=== PATIENT | male | born 1960 | race Caucasian/White ===

== ENCOUNTER 2016-11-21 06:16 | Emergency (ER) | payer BC ==
[2016-11-21] MEDS ORDERED: SODIUM CHLORIDE 0.9% 1,000 ML IV STA (07:23)
[2016-11-21] MEDS ORDERED: IPRATROPIUM-ALBUTEROL 3 ML NEB INHALATION STA (07:24)
[2016-11-21] MEDS ORDERED: SODIUM CHLORIDE 0.9% 500 ML IV STA (07:27)
--- NOTE | 2016-11-21 07:27 | ED ---
Anxiety HPI - General Chief Complaint: Anxiety Stated Complaint: Dizzy, anxiety Time Seen by Provider: 11/21/16 07:00 Source: patient, family, RN notes reviewed Mode of arrival: ambulatory - History of Present Illness Initial Comments: This is a 56-year-old male with a history of hypertension who states he's had over the past 2 weeks episodes of dizziness anxiety sweats not sleeping. He also has a cough with yellow phlegm. He does admit he smokes 1-2 packs of cigarettes per day he also does drink about 6 beers a day he states. He denies any change in his diet he is currently not on medications for blood pressure but he does relate the symptoms to his blood pressure being elevated. 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 He denies any fevers or chills but again he does complain of some intermittent sweats. No chest pain he does get some exertional dyspnea. No abdominal pain no nausea vomiting diarrhea or other symptoms reported he denies any earache sore throat or rhinorrhea. MD Complaint: anxiety, other - Related Data Home Medications: Home Medications Medication Instructions Recorded Confirmed Aspirin 162 mg PO DAILY 11/21/16 11/21/16 Previous Rx's Medication Instructions Recorded Enalapril [Vasotec] 2.5 mg PO DAILY #30 tablet 11/21/16 Allergies/Adverse Reactions: Allergies Allergy/AdvReac Type Severity Reaction Status Date / Time No Known Allergies Allergy Verified 11/21/16 08:29 Review of Systems ROS Statement: Those systems with pertinent positive or pertinent negative responses have been documented in the HPI. ROS Other: All systems not noted in ROS Statement are negative. Past Medical History Past Medical History: GERD/Reflux, Hypertension History of Any Multi-Drug Resistant Organisms: None Reported Additional Past Surgical History / Comment(s): testicles decended Past Psychological History: No Psychological Hx Reported Smoking Status: Current every day smoker Past Alcohol Use History: Daily, Heavy Past Drug Use History: None Reported General Exam - General Exam Comments Initial Comments: This is a well-developed well-nourished awake alert oriented 3 male Limitations: no limitations General appearance: alert, in no apparent distress Head exam: Present: atraumatic, normocephalic, normal inspection Eye exam: Present: normal appearance, PERRL, EOMI. Absent: scleral icterus, conjunctival injection, periorbital swelling ENT exam: Present: normal exam, mucous membranes moist Neck exam: Present: normal inspection. Absent: tenderness, meningismus, lymphadenopathy Respiratory exam: Present: wheezes, decreased breath sounds. Absent: respiratory distress, rales, rhonchi, stridor Cardiovascular Exam: Present: regular rate, normal rhythm, normal heart sounds. Absent: systolic murmur, diastolic murmur, rubs, gallop, clicks GI/Abdominal exam: Present: soft, normal bowel sounds. Absent: distended, tenderness, guarding, rebound, rigid Extremities exam: Present: normal inspection, full ROM, normal capillary refill. Absent: tenderness, pedal edema, joint swelling, calf tenderness Back exam: Present: normal inspection Neurological exam: Present: alert, oriented X3, CN II-XII intact Psychiatric exam: Present: normal affect, normal mood Skin exam: Present: warm, dry, intact, normal color. Absent: rash Course Vital Signs 11/21/16 11/21/16 11/21/16 06:21 06:55 07:20 Temperature 96.7 F L Pulse Rate 86 81 84 Respiratory 18 18 17 Rate Blood Pressure 163/101 157/101 158/96 O2 Sat by Pulse 96 95 Oximetry 11/21/16 11/21/16 11/21/16 07:53 08:04 08:18 Temperature Pulse Rate 78 90 84 Respiratory 18 Rate Blood Pressure 159/100 O2 Sat by Pulse 99 Oximetry 11/21/16 08:34 Temperature Pulse Rate Respiratory 17 Rate Blood Pressure 152/89 O2 Sat by Pulse 89 L Oximetry Medical Decision Making - Medical Decision Making Patient is feeling improved I did discuss the findings with him I did reevaluate the patient is lung sounds are clear. We did a long discussion lasted 3.1 minutes of the need for smoking cessation and the risk factors. Patient will be started on a low-dose blood pressure medication he does not recall when he was on before he will seek out a primary care physician. We also did discuss cessation of alcohol use. Also the need for adequate hydration - Lab Data Result diagrams: 11/21/16 07:30 11/21/16 07:30 Lab Results 11/21/16 11/21/16 11/21/16 Range/Units 07:30 07:30 07:30 WBC 9.5 (3.8-10.6) k/uL RBC 5.45 (4.30-5.90) m/uL Hgb 16.7 (13.0-17.5) gm/dL Hct 49.7 (39.0-53.0) % MCV 91.2 (80.0-100.0) fL MCH 30.6 (25.0-35.0) pg MCHC 33.6 (31.0-37.0) g/dL RDW 13.7 (11.5-15.5) % Plt Count 262 (150-450) k/uL Neutrophils % 73 % Lymphocytes % 17 % Monocytes % 5 % Eosinophils % 2 % Basophils % 1 % Neutrophils # 6.9 (1.3-7.7) k/uL Lymphocytes # 1.6 (1.0-4.8) k/uL Monocytes # 0.4 (0-1.0) k/uL Eosinophils # 0.2 (0-0.7) k/uL Basophils # 0.1 (0-0.2) k/uL Sodium 143 (137-145) mmol/L Potassium 4.5 (3.5-5.1) mmol/L Chloride 108 H (98-107) mmol/L Carbon Dioxide 26 (22-30) mmol/L Anion Gap 9 mmol/L BUN 11 (9-20) mg/dL Creatinine 0.77 (0.66-1.25) mg/dL Est GFR (MDRD) Af Amer >60 (>60 ml/min/1.73 sqM) Est GFR (MDRD) Non-Af >60 (>60 ml/min/1.73 sqM) Glucose 112 H (74-99) mg/dL Calcium 9.9 (8.4-10.2) mg/dL Magnesium 2.1 (1.6-2.3) mg/dL Total Bilirubin 0.8 (0.2-1.3) mg/dL AST 26 (17-59) U/L ALT 40 (21-72) U/L Alkaline Phosphatase 100 (38-126) U/L Total Creatine Kinase 132 (55-170) U/L CK-MB (CK-2) 0.6 (0.0-2.4) ng/mL CK-MB (CK-2) Rel Index 0.5 Troponin I <0.012 (0.000-0.034) ng/mL Total Protein 7.4 (6.3-8.2) g/dL Albumin 4.3 (3.5-5.0) g/dL TSH 0.909 (0.465-4.680) mIU/L Serum Alcohol <10 mg/dL - Radiology Data Radiology results: report reviewed (Review the x-ray shows no evidence of acute findings.), image reviewed Disposition Clinical Impression: Hypertension, Dehydration, Smoking Disposition: HOME SELF-CARE Condition: Good Instructions: Generalized Anxiety Disorder (ED), Hypertension (ED), Dehydration (ED), How to Stop Smoking (ED) Prescriptions: Enalapril [Vasotec] 2.5 mg PO DAILY #30 tablet Referrals: None,Stated [Primary Care Provider] - 1-2 days
[2016-11-21 07:47] LABS: Basophils # (A) 0.1 k/uL (0-0.2); Basophils % (A) 1 %; CH 30.8; Eosinophils # (A) 0.2 k/uL (0-0.7); Eosinophils % (A) 2 %; HCT 49.7 % (39.0-53.0); HDW 2.29; HGB 16.7 gm/dL (13.0-17.5); Luc % (Auto) 2; Lymphocytes # (A) 1.6 k/uL (1.0-4.8); Lymphocytes % (A) 17 %; MCH 30.6 pg (25.0-35.0); MCHC 33.6 g/dL (31.0-37.0); MCV 91.2 fL (80.0-100.0); Mean Platelet Volume 6.9; Monocytes # (A) 0.4 k/uL (0-1.0); Monocytes % (A) 5 %; Neutrophils # (A) 6.9 k/uL (1.3-7.7); Neutrophils % (A) 73 %; RBC 5.45 m/uL (4.30-5.90); RDW 13.7 % (11.5-15.5); WBC 9.5 k/uL (3.8-10.6); WBC (Perox) 8.89
[2016-11-21 07:55] LABS: ALT 40 U/L (21-72); AST 26 U/L (17-59); Alcohol <10 mg/dL; Alkaline Phosphatase 100 U/L (38-126); Anion Gap 9 mmol/L; Blood Urea Nitrogen 11 mg/dL (9-20); Calcium 9.9 mg/dL (8.4-10.2); Carbon Dioxide 26 mmol/L (22-30); Chloride 108 mmol/L (98-107); Glucose 112 mg/dL (74-99); Magnesium 2.1 mg/dL (1.6-2.3); Non-African American GFR(MDRD) >60 (>60 ml/min/1.73 sqM); Potassium 4.5 mmol/L (3.5-5.1); Sodium 143 mmol/L (137-145); Total Bilirubin 0.8 mg/dL (0.2-1.3); Total Protein 7.4 g/dL (6.3-8.2)
[2016-11-21 08:07] LABS: Creatine Kinase 132 U/L (55-170)
[2016-11-21 08:19] VITALS: PULSE 84
[2016-11-21 08:20] LABS: Creatine Kinase MB 0.6 ng/mL (0.0-2.4); Troponin I <0.012 ng/mL (0.000-0.034)
--- NOTE | 2016-11-21 08:24 | XR ---
EXAMINATION TYPE: XR chest 2V DATE OF EXAM: 11/21/2016 COMPARISON: NONE HISTORY: Cough and congestion for one week. TECHNIQUE: Frontal and lateral views of the chest are obtained. FINDINGS: There is chronic parenchymal change without suspicious focal air space opacity, pleural ef fusion, or pneumothorax seen. The cardiac silhouette size is within normal limits. The osseous str uctures are intact. IMPRESSION: Chronic changes without acute cardiopulmonary process
[2016-11-21 08:36] VITALS: RESP 17
[2016-11-21 09:09] VITALS: BP 150/85; TEMP 98.7
== END 2016-11-21 09:10 | disposition home or self-care (01) ==
LOC: EC 06:16
DX: E86.0 Dehydration (principal); I10 Essential (primary) hypertension; F41.9 Anxiety disorder, unspecified; R42 Dizziness and giddiness; R05 Cough; F17.210 Nicotine dependence, cigarettes, uncomplicated; Z79.82 Long term (current) use of aspirin
CPT/HCPCS: 36415; 71020; 80053; 80320; 82550; 82553; 83735; 84443; 84484; 85025; 93005; 94640; 96360; 99284

== ENCOUNTER 2017-11-14 08:46 | Day surgery (SDC) | payer BC ==
[2017-11-13 08:42] VITALS: BMI 29.3
[~2017-11-14 08:46] MED LIST: LACTATED RINGERS 1,000 ML IV SCH; LIDOCAINE 1% 20 ML VIAL (10MG/ML) FOR IV START INTRADERMA PRN; MIDAZOLAM 2 MG/2 ML VIAL IV PRN
[2017-11-14 09:21] VITALS: RESP 18; TEMP 97.4
[2017-11-14] MEDS ORDERED: MIDAZOLAM 2 MG/2 ML VIAL ONE (10:16)
[2017-11-14] MEDS ORDERED: fentaNYL (PF) 50 MCG/ML 2 ML AMP ONE (10:16)
[2017-11-14] MEDS ORDERED: PROPOFOL 10 MG/ML 20 ML VIAL IV ONE (10:16)
[2017-11-14] MEDS ORDERED: LIDOCAINE 1% INJ 10MG/ML (20 ML MDV) ONE (10:16)
--- NOTE | 2017-11-14 10:58 | P.PCN ---
Date of Procedure: 11/14/17 Procedure(s) Performed: Procedure: Colonoscopy and biopsy. Preoperative diagnosis: Screening for neoplasia. Postoperative diagnosis: Diminutive sigmoid polyp biopsied but no large polyps or cancer. Preparation: HalfLytely prep. Sedation: Was provided by anesthesia. Brief clinical history: The patient is a 57-year-old male who is scheduled for this evaluation for screening for neoplasia age being his risk factor. He has no abdominal complaints, bleeding or anemia. No family history of colon cancer this would be his first colonoscopy. Procedure: With the patient on his left lateral decubitus position and after informed consent and adequate sedation, the perianal area was inspected and it did not show any fissures or fistulas. There were no masses felt on digital rectal examination. The Olympus CFQ 160L video colonoscope was then inserted in the rectum in the usual fashion and advanced to the cecum. There was a diminutive polyp in the sigmoid which was biopsied but there were no large polyps or cancer. There were no obvious diverticular disease or other pathology. I retroflexed the endoscope in the rectum before the endoscope was withdrawn. The patient tolerated the procedure well. Plan: The patient was reassured. Will await biopsy results. He will follow up with you as planned and I anticipate repeating this exam in 5-10 years.
[2017-11-14 11:14] VITALS: PULSE 69
[2017-11-14 11:25] VITALS: BP 118/70
== END 2017-11-14 11:42 | disposition home or self-care (01) ==
LOC: ORWHC2ENDO 08:46
DX: Z12.11 Encounter for screening for malignant neoplasm of colon (principal); K63.5 Polyp of colon; I10 Essential (primary) hypertension; E78.5 Hyperlipidemia, unspecified; Z72.0 Tobacco use; K21.9 Gastro-esophageal reflux disease without esophagitis; Z79.899 Other long term (current) drug therapy
CPT/HCPCS: 88305; 45380; J2250; J2001; J3010; J2704

== ENCOUNTER 2018-07-27 22:11 | Emergency (ER) | payer BC ==
[2018-07-27] MEDS ORDERED: ONDANSETRON 4 MG/2 ML VIAL IVP STA (22:44)
[2018-07-27] MEDS ORDERED: HYDROmorphone 0.5 MG/0.5 ML SYRINGE IVP STA (22:44)
[2018-07-27] MEDS ORDERED: KETOROLAC 30 MG/ML 1 ML VIAL IVP STA (22:44)
[2018-07-27] MEDS ORDERED: SODIUM CHLORIDE 0.9% 1,000 ML IV STA (22:44)
--- NOTE | 2018-07-27 22:51 | ED ---
Abdominal Pain HPI - General Source: patient Mode of arrival: ambulatory Limitations: no limitations <Carlene Madrigal - Last Filed: 07/28/18 00:25> <Erin Chatterjee - Last Filed: 07/28/18 02:43> - General Chief Complaint: Abdominal Pain Stated Complaint: poss kidney stone Time Seen by Provider: 07/27/18 22:32 - History of Present Illness Initial Comments: 58-year-old male patient presents to the emergency department today for evaluation of right low back pain that radiates into the right lower quadrant abdomen. Patient denies any radiation of the pain to his groin or testicles. Denies any difficulty with urination. States the pain started around 11:00 this morning and has persisted since. He denies any radiation of the pain down his leg. Denies any loss of bowel or bladder control. There is a numbness or tingling to the lower extremities. Patient denies any history of similar symptoms. Denies any history of abdominal surgeries. States his bowel movements have been normal. Denies any hematochezia or melena. Denies any nausea or vomiting with this. Denies fevers or chills. Patient denies any recent rash, shortness breath, chest pain, dizziness, weakness, hematuria, dysuria, urinary urgency, urinary frequency, headache, visual changes, or any other complaints. (Carlene Madrigal) - Related Data Home Medications Medication Instructions Recorded Confirmed Atorvastatin [Lipitor] 1 tab PO DAILY 11/14/17 11/14/17 Famotidine 1 tab PO DAILY 11/14/17 11/14/17 Gemfibrozil [Lopid] 1 tab PO BID 11/14/17 11/14/17 [place]-3 Fatty Acids/Fish Oil [Fish 1 tab PO DAILY 11/14/17 11/14/17 Oil 1,000 mg Softgel] amLODIPine BESYLATE/BENAZEPRIL 1 tab PO DAILY 11/14/17 11/14/17 [Lotrel 10-40 mg Capsule] Previous Rx's Medication Instructions Recorded Cyclobenzaprine [Flexeril] 10 mg PO TID #15 tab 07/28/18 Ibuprofen [Motrin] 600 mg PO Q8HR PRN #30 tab 07/28/18 Allergies Allergy/AdvReac Type Severity Reaction Status Date / Time No Known Allergies Allergy Verified 07/27/18 22:22 Review of Systems ROS Other: All systems not noted in ROS Statement are negative. <Carlene Madrigal - Last Filed: 07/28/18 00:25> ROS Other: All systems not noted in ROS Statement are negative. <Erin Chatterjee Zoraida - Last Filed: 07/28/18 02:43> ROS Statement: Those systems with pertinent positive or pertinent negative responses have been documented in the HPI. Past Medical History Past Medical History: GERD/Reflux, Hyperlipidemia, Hypertension History of Any Multi-Drug Resistant Organisms: None Reported Additional Past Surgical History / Comment(s): surgery for undescended testicle as a child Past Anesthesia/Blood Transfusion Reactions: No Reported Reaction Past Psychological History: No Psychological Hx Reported Smoking Status: Former smoker Past Alcohol Use History: Occasional Past Drug Use History: None Reported - Past Family History Mother Family Medical History: No Reported History <Carlene Madrigal Gabriela - Last Filed: 07/28/18 00:25> General Exam Limitations: no limitations General appearance: alert, in no apparent distress, other (Physical well- developed, well-nourished adult male patient in no acute distress. Vital signs upon presentation are temperature 98.6F, pulse 90, respirations 18, blood pressure 114/77, pulse ox 95% on room air.) Eye exam: Present: normal appearance, PERRL, EOMI. Absent: scleral icterus, conjunctival injection, periorbital swelling Respiratory exam: Present: normal lung sounds bilaterally. Absent: respiratory distress, wheezes, rales, rhonchi, stridor Cardiovascular Exam: Present: regular rate, normal rhythm, normal heart sounds. Absent: systolic murmur, diastolic murmur, rubs, gallop, clicks GI/Abdominal exam: Present: soft, tenderness (Right lower quadrant tenderness), normal bowel sounds. Absent: distended, guarding, rebound, rigid Back exam: Present: normal inspection. Absent: CVA tenderness (R), CVA tenderness (L) Neurological exam: Present: alert, oriented X3, CN II-XII intact Psychiatric exam: Present: normal affect, normal mood Skin exam: Present: warm, dry, intact, normal color. Absent: rash <Carlene Madrigal - Last Filed: 07/28/18 00:25> Vital Signs 0207/27/18 07/28/18 22:19 23:22 00:00 Temperature 98.6 F Pulse Rate 90 79 77 Respiratory 18 18 20 Rate Blood Pressure 114/77 132/73 119/69 O2 Sat by Pulse 95 98 95 Oximetry 07/28/18 00:39 Temperature 97 F L Pulse Rate 78 Respiratory 18 Rate Blood Pressure 119/79 O2 Sat by Pulse 97 Oximetry Medical Decision Making - Lab Data Result diagrams: 07/27/18 22:33 07/27/18 22:33 - Radiology Data Radiology results: image reviewed <Carlene Madrigal - Last Filed: 07/28/18 00:25> - Lab Data Result diagrams: 07/27/18 22:33 07/27/18 22:33 <Erin Chatterjee - Last Filed: 07/28/18 02:43> - Medical Decision Making 58-year-old male patient presents to the emergency department today for evaluation of right low back pain that radiates into the right lower abdomen. Physical examination is relatively unremarkable. He is neurovascularly intact and neurologically intact. Labs reviewed and are relatively unremarkable. Patient was unable to provide urine sample here in the department. We did perform CT abdomen and pelvis without contrast, this did show no acute abnormalities however there was an incidental finding of a 1.2 cm left renal lesion. I did discuss this finding with the patient and instructed him to follow-up with his primary care physician for further evaluation. Given lack of other findings patient's pain is felt to be related to mechanical back pain. He'll be given anti-inflammatory, muscle relaxer, and a starter pack for Tylenol codeine. He is instructed to follow-up with his primary care physician for recheck in 1-2 days. Return parameters were discussed in detail. He verbalizes understanding and agrees with this plan. (Carlene Madrigal) I was available for consultation in the emergency department. The history and physical exam were done by the midlevel provider. I was consulted for this patient's care. I reviewed the case with the midlevel provider and based on their presentation of the patient, I agree with the assessment, medical decision making and plan of care as documented. (Erin Chatterjee) - Lab Data Lab Results 07/27/18 07/27/18 Range/Units 22:33 22:33 WBC 9.4 (3.8-10.6) k/uL RBC 5.04 (4.30-5.90) m/uL Hgb 14.7 (13.0-17.5) gm/dL Hct 43.1 (39.0-53.0) % MCV 85.6 (80.0-100.0) fL MCH 29.1 (25.0-35.0) pg MCHC 34.0 (31.0-37.0) g/dL RDW 12.9 (11.5-15.5) % Plt Count 396 (150-450) k/uL Neutrophils % 59 % Lymphocytes % 26 % Monocytes % 6 % Eosinophils % 5 % Basophils % 1 % Neutrophils # 5.5 (1.3-7.7) k/uL Lymphocytes # 2.5 (1.0-4.8) k/uL Monocytes # 0.6 (0-1.0) k/uL Eosinophils # 0.5 (0-0.7) k/uL Basophils # 0.1 (0-0.2) k/uL Sodium 138 (137-145) mmol/L Potassium 4.9 (3.5-5.1) mmol/L Chloride 101 (98-107) mmol/L Carbon Dioxide 26 (22-30) mmol/L Anion Gap 11 mmol/L BUN 14 (9-20) mg/dL Creatinine 1.02 (0.66-1.25) mg/dL Est GFR (CKD-EPI)AfAm >90 (>60 ml/min/1.73 sqM) Est GFR (CKD-EPI)NonAf 81 (>60 ml/min/1.73 sqM) Glucose 111 H (74-99) mg/dL Calcium 9.8 (8.4-10.2) mg/dL Total Bilirubin 0.9 (0.2-1.3) mg/dL AST 35 (17-59) U/L ALT 50 (21-72) U/L Alkaline Phosphatase 153 H (38-126) U/L Total Protein 8.3 H (6.3-8.2) g/dL Albumin 4.7 (3.5-5.0) g/dL Amylase 51 (30-110) U/L Lipase 90 (23-300) U/L - Radiology Data CT abdomen and pelvis without contrast was obtained. Report was reviewed in its entirety. Impression by Dr. Villela is 1.2 cm indeterminate left renal lesion. Follow-up advised. (Carlene Madrigal) Disposition Is patient prescribed a controlled substance at d/c from ED?: No <Carlene Madrigal - Last Filed: 07/28/18 00:25> <Erin Chatterjee - Last Filed: 07/28/18 02:43> Clinical Impression: Acute low back pain, Kidney lesion, [place], left Disposition: HOME SELF-CARE Condition: Good Instructions (If sedation given, give patient instructions): Acute Low Back Pain (ED) Additional Instructions: Take medications as directed. Follow up with your primary care physician for recheck in 1-2 days. Inform them of left kidney lesion and need for further evaluation. Return to the emergency department for any new, worsening, or concerning symptoms. Prescriptions: Cyclobenzaprine [Flexeril] 10 mg PO TID #15 tab Ibuprofen [Motrin] 600 mg PO Q8HR PRN #30 tab PRN Reason: Pain Referrals: Ronal Yarbrough MD [Primary Care Provider] - 1-2 days
[2018-07-27 23:01] LABS: Basophils # (A) 0.1 k/uL (0-0.2); Basophils % (A) 1 %; Eosinophils # (A) 0.5 k/uL (0-0.7); Eosinophils % (A) 5 %; HCT 43.1 % (39.0-53.0); HGB 14.7 gm/dL (13.0-17.5); Lymphocytes # (A) 2.5 k/uL (1.0-4.8); Lymphocytes % (A) 26 %; MCH 29.1 pg (25.0-35.0); MCV 85.6 fL (80.0-100.0); Mean Platelet Volume 6.6; Monocytes # (A) 0.6 k/uL (0-1.0); Monocytes % (A) 6 %; Neutrophils # (A) 5.5 k/uL (1.3-7.7); Neutrophils % (A) 59 %; Platelet Count 396 k/uL (150-450); RBC 5.04 m/uL (4.30-5.90); RDW 12.9 % (11.5-15.5); WBC 9.4 k/uL (3.8-10.6)
[2018-07-27 23:09] LABS: ALT 50 U/L (21-72); AST 35 U/L (17-59); Albumin 4.7 g/dL (3.5-5.0); Alkaline Phosphatase 153 U/L (38-126); Amylase 51 U/L (30-110); Anion Gap 11 mmol/L; Blood Urea Nitrogen 14 mg/dL (9-20); Calcium 9.8 mg/dL (8.4-10.2); Carbon Dioxide 26 mmol/L (22-30); Chloride 101 mmol/L (98-107); Glucose 111 mg/dL (74-99); Lipase 90 U/L (23-300); Potassium 4.9 mmol/L (3.5-5.1); Sodium 138 mmol/L (137-145); Total Bilirubin 0.9 mg/dL (0.2-1.3); Total Protein 8.3 g/dL (6.3-8.2)
--- NOTE | 2018-07-28 00:14 | CT ---
EXAM: CT Abdomen and Pelvis Without Intravenous Contrast CLINICAL HISTORY: ITS.REASON CT Reason: Pain TECHNIQUE: Axial computed tomography images of the abdomen and pelvis without intravenous contrast. CTDI is 14 mGy and DLP is 886 mGy-cm. This CT exam was performed using one or more of the following dose reduction techniques: automated exposure control, adjustment of the mA and/or kV according to patient size, and/or use of iterative reconstruction technique. COMPARISON: No relevant prior studies available. FINDINGS: Lung bases: Unremarkable. No mass. No consolidation. ABDOMEN: Liver: Hepatomegaly Gallbladder and bile ducts: No abnormal ductal dilation or stones. Pancreas: Unremarkable. No ductal dilation. Spleen: Mild splenomegaly Adrenals: Unremarkable. No mass. Kidneys and ureters: 1.2 cm indeterminate left renal lesion. Stomach and bowel: No obstruction. No mucosal thickening. PELVIS: Appendix: No findings to suggest acute appendicitis. Bladder: Unremarkable. No stones. Reproductive: Unremarkable as visualized. ABDOMEN and PELVIS: Intraperitoneal space: Unremarkable. No free air. No significant fluid collection. Bones/joints: No acute fracture. No dislocation. Soft tissues: Unremarkable. Vasculature: No abdominal aortic aneurysm. Lymph nodes: Unremarkable. No enlarged lymph nodes. IMPRESSION: 1.2 cm indeterminate left renal lesion. Follow-up advised.
[2018-07-28] MEDS ORDERED: HYDROmorphone 2 MG/ML 1 ML SYRINGE IVP STA (00:23)
[2018-07-28] MEDS ORDERED: ACET/COD 300 MG/30 MG STARTER PACK 6 TAB BTL PO STA (00:24)
[2018-07-28 00:41] VITALS: BP 119/79; PULSE 78; RESP 18; TEMP 97
== END 2018-07-28 00:40 | disposition home or self-care (01) ==
LOC: EC 22:11
DX: N28.9 Disorder of kidney and ureter, unspecified (principal); M54.5 Low back pain; E78.5 Hyperlipidemia, unspecified; I10 Essential (primary) hypertension; Z79.899 Other long term (current) drug therapy; Z87.891 Personal history of nicotine dependence
CPT/HCPCS: 36415; 80053; 82150; 83690; 85025; 74176; 99284; 96374; 96375 ×2; 96376; 96361; J1170 ×2; J2405; J1885

== ENCOUNTER → 2018-08-06 | Outpatient (CLI) | payer BC ==
--- NOTE | 2018-08-07 08:16 | US ---
EXAMINATION TYPE: US kidneys/renal and bladder DATE OF EXAM: 08/06/2018 COMPARISON: CT 2019 CLINICAL HISTORY: N28.1 Simple Renal Cyst. Left kidney lesion seen on recent CT EXAM MEASUREMENTS: Right Kidney: 11.4 x 5.9 x 6.6 cm Left Kidney: 12.8 x 6.1 x 6.9 cm Right Kidney: no hydronephrosis or masses seen Left Kidney: 1.3cm cyst seen medial mid pole, 2.0 x 2.0 x 2.3cm complex area with septations seen lat eral mid pole Bladder: wnl Bilateral Jets seen: no There is no evidence for hydronephrosis at this point in time. No nephrolithiasis is seen. No joel s are identified in the right kidney. The urinary bladder is anechoic. Bilateral ureteral jets are seen. IMPRESSION: Simple appearing 1.3 cm exophytic cyst is confirmed medially. This likely corresponds to the more hyp erdense smaller anterior lesion on CT. There is more complex 2.1 cm partially exophytic hypoechoic an echoic lesion with internal septa laterally mid pole level likely corresponding to the more posterior lesion on CT. Cystic neoplasm cannot be excluded for this lesion. Follow-up renal protocol contrast- enhanced CT/MRI is advised to further evaluate.
== END ==
LOC: RADUSWWP 16:00
PROVIDERS: ATTEND Family Medicine
DX: N28.1 Cyst of kidney, acquired (principal)
CPT/HCPCS: 76770

== ENCOUNTER → 2018-08-11 | Outpatient (CLI) | payer BC | LOC: RADMRIMAIN 08:34 | PROVIDERS: ATTEND Family Medicine | DX: Z53.9 Procedure and treatment not carried out, unspecified reason (principal) ==

== ENCOUNTER → 2018-09-01 | Outpatient (CLI) | payer BC ==
[2018-09-01 08:18] LABS: Blood Urea Nitrogen 15 mg/dL (9-20)
--- NOTE | 2018-09-01 10:07 | CT ---
EXAMINATION TYPE: CT abdomen wo/w con DATE OF EXAM: 09/01/2018 COMPARISON: 08/06/2018 INDICATION: Follow up left renal mass. DLP: 199 mGycm, Automated exposure control for dose reduction was used. CONTRAST: 100 mL of Isovue 300. Study performed with Oral Contrast TECHNIQUE: Axial images were obtained from above the diaphragm to the iliac crests in the axial plane at 5 mm thick sections. Reconstructed images are reviewed on the computer in the coronal plane. FINDINGS: Limited CT sections are obtained the lung bases. The lung bases are clear. CT ABDOMEN: Liver: Normal Spleen: Normal Pancreas: Normal Adrenal glands: The adrenal glands are normal. Gallbladder: Normal Kidneys: No masses are evident. No hydronephrosis is present. There is a 1.2 cm hypodense area exte nding from the anterior left mid kidney measuring 19 Hounsfield units. This appears to correspond to a cyst on ultrasound. The hyperechoic area within the lateral left mid kidney appears to correspond t o an oval hypodensity on the CT examination. This measures 1.9 cm and [address] On the [address] examination this appears more as a complex cyst although this is not the appearance on the ultrasound . This is less distinct on the precontrast imaging. This measures 23 Hounsfield units on the delayed images and 24 Hounsfield units on the precontrast imaging. A 0.6 cm hyperdensity is present on the i nferior pole medial right kidney. Series 4 image 44. This area is less well visualized on postcontras t imaging. Aorta: Vascular calcification is within the aorta. Inferior vena cava: Normal. Bowel: Loops of bowel distended with oral contrast appear unremarkable. Portion of the appendix visua lized is unremarkable. No significant contrast within the colon. IMPRESSIONS: 1. Masslike area on the ultrasound appears more cystlike on the current CT examination. This does no t appear to enhance. This however is not concordant with the ultrasound findings. Additional workup w ith contrast MRI of the kidneys is recommended. 2. Small hyperdensity at the inferior medial right kidney measuring 0.6 cm could be a small angiomyol ipoma. 3. Suspected exophytic cyst on the anterior left mid kidney. This could be confirmed with the recomme nded MRI.
== END | disposition home or self-care (01) ==
LOC: RADCTMAIN 07:36
PROVIDERS: ATTEND Urology
DX: N28.89 Other specified disorders of kidney and ureter (principal)
CPT/HCPCS: 82565; 84520; 74170; 36415; Q9967

== ENCOUNTER 2018-10-13 05:53 | Emergency (ER) | payer BC ==
[2018-10-13 06:01] VITALS: BP 124/61; PULSE 68; RESP 18; TEMP 97.8
[2018-10-13] MEDS ORDERED: LORazepam 1 MG TAB PO STA (06:38)
--- NOTE | 2018-10-13 06:39 | ED ---
Anxiety HPI - General Chief Complaint: Anxiety Stated Complaint: Panic attack Time Seen by Provider: 10/13/18 06:10 Source: patient Mode of arrival: ambulatory - History of Present Illness Initial Comments: Jey is a 58yo male who presents to the ER today for evaluation of panic attack. Patient states that he has been sufferinig from anxiety quite a bit recently he is followed with his primary care physician and was started on Lexapro. Patient reports he's been taking Lexapro for a full week with but continues to wake every morning feeling very anxious. Patient states that he has a panic attack every morning. Patient also states that he is able to go to bed at night and falls asleep he usually wakes up after 3 hours and then lies awake for 3-4 hours during the night feeling very anxious and unable to sleep. He thinks his inability to sleep is contributing to his anxiety in the morning. Patient thought that his Lexapro would fix his problems within a week. She reports his symptoms are the same every morning he feels like his heart begins racing and he has to take rapid shallow breaths. He sometimes he feels lightheaded but this usually resolves. Patient reports he experiences when driving to work this morning decided to go home and lay down and sit up going to work. - Related Data Home Medications: Home Medications Medication Instructions Recorded Confirmed Atorvastatin [Lipitor] 1 tab PO DAILY 11/14/17 11/14/17 Famotidine 1 tab PO DAILY 11/14/17 11/14/17 Gemfibrozil [Lopid] 1 tab PO BID 11/14/17 11/14/17 Burnett-3 Fatty Acids/Fish Oil [Fish 1 tab PO DAILY 11/14/17 11/14/17 Oil 1,000 mg Softgel] amLODIPine BESYLATE/BENAZEPRIL 1 tab PO DAILY 11/14/17 11/14/17 [Lotrel 10-40 mg Capsule] Previous Rx's Medication Instructions Recorded Cyclobenzaprine [Flexeril] 10 mg PO TID #15 tab 07/28/18 Ibuprofen [Motrin] 600 mg PO Q8HR PRN #30 tab 07/28/18 LORazepam [Ativan] 1 mg PO BID 3 Days #6 tab 10/13/18 Allergies/Adverse Reactions: Allergies Allergy/AdvReac Type Severity Reaction Status Date / Time No Known Allergies Allergy Verified 07/27/18 22:22 Review of Systems ROS Statement: Those systems with pertinent positive or pertinent negative responses have been documented in the HPI. ROS Other: All systems not noted in ROS Statement are negative. Past Medical History Past Medical History: GERD/Reflux, Hyperlipidemia, Hypertension History of Any Multi-Drug Resistant Organisms: None Reported Additional Past Surgical History / Comment(s): surgery for undescended testicle as a child Past Anesthesia/Blood Transfusion Reactions: No Reported Reaction Past Psychological History: No Psychological Hx Reported Smoking Status: Former smoker Past Alcohol Use History: Occasional Past Drug Use History: None Reported - Past Family History Mother Family Medical History: No Reported History General Exam - General Exam Comments Initial Comments: Physical Exam GENERAL: Patient is well-developed and well-nourished. Patient is nontoxic and well- hydrated and is in no distress. HENT: Normocephalic, Atraumatic. EYES: PERRL, EOMI PULMONARY: Unlabored respirations. No audible rales rhonchi or wheezing was noted. CARDIOVASCULAR: There is a regular rate and rhythm without any murmurs gallops or rubs. ABDOMEN: Soft and nontender with normal bowel sounds. SKIN: Skin is clear with no lesions or rashes and otherwise unremarkable. : Deferred NEUROLOGIC: Patient is alert and oriented x3. Moving all extremities spontaneously MUSCULOSKELETAL: Normal extremities with adequate strength and full range of motion. No lower extremity swelling or edema. No calf tenderness. PSYCHIATRIC: Anxious, agitated Limitations: no limitations Course Vital Signs 10/13/18 05:57 Temperature 97.8 F Pulse Rate 68 Respiratory 18 Rate Blood Pressure 124/61 O2 Sat by Pulse 98 Oximetry Medical Decision Making - Medical Decision Making The patient was seen and evaluated, history was obtained from the patient and review of medical records This is a pleasant 58-year-old gentleman who is been experiencing anxiety for a number of weeks he started Lexapro last week he continues to have anxiety attacks daily and difficulty sleeping. I did discuss with the patient that when starting new medications he can take a number of weeks to be fully effective. I offered the patient short course of Ativan to help him sleep at night as I do feel that getting better sleep will help him throughout the day. Patient is agreeable to this. Patient very worked up over having missed work today over this anxiety and being somewhat agitated over his medications not working yet. He will be given an oral Ativan here in the emergency department prior to discharge. The patient is experiencing no chest pain or palpitations he has no exertional symptoms. At this time I do feel the patient's symptoms are related to his anxiety, patient comfortable with plan for discharge home. Disposition Clinical Impression: Panic disorder Disposition: HOME SELF-CARE Condition: Stable Instructions (If sedation given, give patient instructions): Generalized Anxiety Disorder (ED) Prescriptions: LORazepam [Ativan] 1 mg PO BID 3 Days #6 tab Is patient prescribed a controlled substance at d/c from ED?: Yes Referrals: Ronal Yarbrough MD [Primary Care Provider] - 1-2 days
== END 2018-10-13 06:50 | disposition home or self-care (01) ==
LOC: EC 05:53
DX: F41.0 Panic disorder [episodic paroxysmal anxiety] (principal); K21.9 Gastro-esophageal reflux disease without esophagitis; E78.5 Hyperlipidemia, unspecified; I10 Essential (primary) hypertension; Z87.891 Personal history of nicotine dependence; Z79.899 Other long term (current) drug therapy
CPT/HCPCS: 99282

== ENCOUNTER → 2019-02-03 | Outpatient (CLI) | payer BC ==
--- NOTE | 2019-02-03 12:59 | MR ---
EXAMINATION TYPE: MR kidney wo/w con DATE OF EXAM: 02/03/2019 COMPARISON: CT dated 09/01/2018 and 07/27/2018 and renal ultrasound dated 08/06/2018 HISTORY: Left renal cyst CONTRAST: Standard multiplanar, multisequence MRI departmental protocol utilizing 11.5 mL intravenous Gadavist gadolinium contrast. FINDINGS: The previously seen left mid pole exophytic renal lesion measures 2.5 x 1.4 x 1.6 cm and de monstrates a few internal barely imperceptible thin septations and no mural nodules. This is lobulate d in contour. A second exophytic midpole mass emanates from the anterior left renal margin measuring 1.5 x 1.5 x 1.3 cm and demonstrates no internal complexity. The anterior lesion is T1 isointense and the lateral lesion is T1 precontrast hypointense. The lateral lesion demonstrates no significant enha ncement and the anterior also demonstrates no significant enhancement. On the prior ultrasound of 07/12 the anterior lesion appears entirely cystic and the lateral lesion appears complex cystic. A s olitary too small to accurately characterize probable right midpole renal lesion and exophytic too sm all to accurately characterize medial lower pole lesion are seen. No hydronephrosis of either kidney. The entirety of the liver is not included in the images however the visualized portion of the liver t here is a 7 mm arterial enhancing lesion of the medial right hepatic lobe in a subcapsular location o n postcontrast image 361. No definitive correlate on precontrast imaging nor on T2-weighted imaging i s seen and therefore this could represent a small arterial portal shunt. Arterial portal shunt is fav ored as this does not persist on the remainder of the more delayed imaging and no washout is seen on the last delayed sequence. The gallbladder demonstrates a probable 6 mm enhancing polyp is seen in nondependently along the ante rior wall. The spleen is nonenlarged and unremarkable. Small splenules are noted adjacent to the rabia ve splenic hilum. The adrenal glands are symmetric and unremarkable. Small lymph nodes are present ad jacent to the left adrenal gland and in the periaortic space. No dilated large or small bowel is seen . Pancreas enhances homogeneously without ductal dilatation. No abnormal bone marrow signal is apprec iated. Very mild signal dropout is seen of the liver indicating mild degree hepatic steatosis. Very s mall hiatal hernia is present. IMPRESSION: 1. Minimally complex Bosniak II left renal cyst has few less than 1 mm septa and is nonenhancing. No additional workup is necessary. 2. A second left anterior 1.5 cm left renal midpole lesion appears cystic on the prior ultrasound and isointense on MR relating to a hyperdense cyst, also Bosniak II. No additional workup is necessary. 3. Subcentimeter too small to accurately characterize right renal lesions, one of which appears as a small cyst and the other is indeterminant but only approximately 3 mm at this time. 4. Probable punctate hepatic arterial portal shunt, suspected benign. 5. Very mild degree hepatic steatosis. 6. Small hiatal hernia.
== END | disposition home or self-care (01) ==
LOC: RADMRIMAIN 08:53
PROVIDERS: ATTEND Urology
DX: N28.1 Cyst of kidney, acquired (principal); N28.9 Disorder of kidney and ureter, unspecified; K76.0 Fatty (change of) liver, not elsewhere classified; K44.9 Diaphragmatic hernia without obstruction or gangrene
CPT/HCPCS: 74183; A9585

== ENCOUNTER → 2024-04-24 | Outpatient (CLI) | payer BC ==
--- NOTE | 2024-04-26 20:24 | CTL ---
EXAMINATION TYPE: CT Low Dose Lung DATE OF EXAM: 04/24/2024 8:03 AM COMPARISON: None. CLINICAL INDICATION: Male, 63 years old with history of Z12.2 ENCNTR SCREEN FOR MALIGNANT NEOPLASM OF RESP, Personal hx nicotine dependence, 1 ppd x 46 years, current smoker, hx emphysema., Lung cancer screening, History of tobacco use. TECHNIQUE: Low dose computed tomography scan was performed through the chest at 1 mm thick sections a nd reconstructed images in the coronal plane at 1 mm thick sections. Contrast used: mL of , (none if empty) Oral contrast used: (none if empty) CT DLP: 106.6 mGycm, Automated exposure control for dose reduction was used. CT CTDI: 2.6 mGy, Automated exposure control for dose reduction was used. SCREENING VISIT: Initial CT DIAGNOSTIC QUALITY: Satisfactory FINDINGS: LUNG NODULES: None. There is a posterior medial right lung apex calcification. LUNGS: COPD: Severity: None Fibrosis: Severity: None Lymph nodes: None Other findings: None RIGHT PLEURAL SPACE: Effusion: None Calcification: None Thickening: None Pneumothorax: None LEFT PLEURAL SPACE: Effusion: None Calcification: None Thickening: None Pneumothorax: None HEART: Other: Ascending thoracic aorta at the level the main pulmonary artery measures 3.9 cm. The main pul monary artery at the bifurcation measures3.1 cm. Heart Size: Normal Coronary calcification: Mild Pericardial effusion: None OTHER FINDINGS: Upper abdomen: Normal Bony thorax: Normal Supraclavicular region: Normal IMPRESSION: No suspicious changes for primary or metastatic neoplasm. FOLLOW UP CT CHEST RECOMMENDATION: Follow-up low-dose CT chest one year CT LUNG RAD: Lung-Rad 1 Negative [facility], , 04/26/2024 8:22 PM
== END | disposition home or self-care (01) ==
LOC: RADCTMAIN 06:26
PROVIDERS: ATTEND Family Medicine
DX: Z12.2 Encounter for screening for malignant neoplasm of respiratory organs (principal); J43.9 Emphysema, unspecified; F17.210 Nicotine dependence, cigarettes, uncomplicated
CPT/HCPCS: 71271